=== PATIENT | male | born 1940 | race Hispanic/Latino ===

== ENCOUNTER 2019-07-20 11:13 | Outpatient (CLI) | payer MEDICARE ==
--- NOTE | 2019-07-20 11:31 | RAD ---
XR Chest Pa Lat STANDARD HISTORY: Chest pain COMPARISON: 10/22/2015 FINDINGS: The heart size is normal. The aorta is tortuous. There are degenerative changes in the spin e. The lungs are well expanded without focal areas of consolidation, pneumothorax or pleural effusions. IMPRESSION: No radiographic evidence of acute cardiopulmonary process.
== END 2019-07-20 11:14 | disposition home or self-care (01) ==
LOC: BICRAD 11:13
PROVIDERS: ATTEND Family Medicine
DX: S29.011A Strain of muscle and tendon of front wall of thorax, initial encounter (principal)
CPT/HCPCS: 71046

== ENCOUNTER 2020-11-03 14:48 | Outpatient (CLI) | payer MEDICARE, OTHER | END 2020-11-03 14:49 | disposition home or self-care (01) | LOC: BICCT 14:48 | PROVIDERS: ATTEND Neurological Surgery | DX: M54.2 Cervicalgia (principal); M47.812 Spondylosis without myelopathy or radiculopathy, cervical region; M47.813 Spondylosis without myelopathy or radiculopathy, cervicothoracic region | CPT/HCPCS: 72125 ==

== ENCOUNTER 2021-02-20 08:51 | Outpatient (CLI) | payer MEDICARE, OTHER ==
[2021-02-20 17:18] LABS: SARS-CoV-2 PCR by NAA Not Detected (NotDetected)
== END 2021-02-20 08:52 | disposition home or self-care (01) ==
LOC: LABBT 08:51
PROVIDERS: ATTEND Neurological Surgery
DX: Z01.812 Encounter for preprocedural laboratory examination (principal); G56.02 Carpal tunnel syndrome, left upper limb; Z20.822 Contact with and (suspected) exposure to COVID-19
CPT/HCPCS: U0003; U0005

== ENCOUNTER 2021-02-25 05:48 | Day surgery (SDC) | payer MEDICARE ==
[2021-02-24 12:24] VITALS: BMI 27.9
[2021-02-25] MEDS ORDERED: Lidocaine 1% w/Epinephrine 1:100K 20 ML VIAL ONE (06:40)
[2021-02-25] MEDS ORDERED: PROPOFOL 60 ML ONE (06:50)
[2021-02-25] MEDS ORDERED: Fentanyl 100 MCG/2 ML VIAL ONE (06:52)
== END 2021-02-25 08:55 | disposition home or self-care (01) ==
LOC: SDC 05:48
PROVIDERS: ATTEND Neurological Surgery
PROC: 01N50ZZ Release Median Nerve, Open Approach (ICD-10-PCS; principal; 2021-02-25)
DX: G56.02 Carpal tunnel syndrome, left upper limb (principal); E78.5 Hyperlipidemia, unspecified; G89.29 Other chronic pain; I10 Essential (primary) hypertension; M19.90 Unspecified osteoarthritis, unspecified site; Z79.82 Long term (current) use of aspirin; Z79.899 Other long term (current) drug therapy; Z95.5 Presence of coronary angioplasty implant and graft; Z98.1 Arthrodesis status
CPT/HCPCS: J2704; J3010

== ENCOUNTER 2021-05-21 08:58 | Outpatient (CLI) | payer MEDICARE, OTHER | END 2021-05-21 08:59 | disposition home or self-care (01) | LOC: BICCT 08:58 | PROVIDERS: ATTEND Family Medicine | DX: R10.2 Pelvic and perineal pain (principal) | CPT/HCPCS: 74177 ==

== ENCOUNTER 2021-05-25 16:30 | Outpatient (CLI) | payer MEDICARE | END 2021-05-25 16:31 | disposition home or self-care (01) | LOC: SLEEPLAB 16:30 | PROVIDERS: ATTEND Family Medicine | DX: G47.10 Hypersomnia, unspecified (principal); G47.33 Obstructive sleep apnea (adult) (pediatric); R53.83 Other fatigue; R06.83 Snoring; I10 Essential (primary) hypertension; I25.10 Atherosclerotic heart disease of native coronary artery without angina pectoris; G47.00 Insomnia, unspecified | CPT/HCPCS: 95806 ==

== ENCOUNTER 2021-05-27 14:22 | Outpatient (CLI) | payer MEDICARE | END 2021-05-27 14:23 | disposition home or self-care (01) | LOC: ULT 14:22 | PROVIDERS: ATTEND Family Medicine | DX: R60.0 Localized edema (principal) ==

== ENCOUNTER 2022-04-07 13:28 | Outpatient (CLI) | payer MEDICARE, OTHER | END 2022-04-07 13:29 | disposition home or self-care (01) | LOC: BICRAD 13:28 | PROVIDERS: ATTEND Nurse Practitioner Family | DX: R06.2 Wheezing (principal) | CPT/HCPCS: 71046 ==

== ENCOUNTER 2024-06-28 12:00 | Outpatient (CLI) | payer MEDICARE | END 2024-06-28 12:01 | disposition home or self-care (01) | LOC: BICRAD 12:00 | PROVIDERS: ATTEND Family Medicine | DX: S39.012A Strain of muscle, fascia and tendon of lower back, initial encounter (principal); M47.816 Spondylosis without myelopathy or radiculopathy, lumbar region; M43.17 Spondylolisthesis, lumbosacral region | CPT/HCPCS: 72100 ==